=== PATIENT | male | born 1985 ===

== ENCOUNTER 2021-01-27 20:30 | Emergency (ER) | payer BC ==
[~2021-01-27] VITALS: Ht 180.3 cm; Wt 83.9 kg
[~2021-01-27 20:30] MED LIST: HYDACE5 PO; OXYACE5T PO; SULTRIDS PO
== END 2021-01-27 23:42 | disposition home or self-care (01) ==
LOC: ER 20:30
DX: S42.022A Displaced fracture of shaft of left clavicle, initial encounter for closed fracture (principal); R06.02 Shortness of breath; W19.XXXA Unspecified fall, initial encounter
CPT/HCPCS: 71045; 73000; 99283-25; A9270

== ENCOUNTER 2021-10-22 19:27 | Emergency (ER) | payer BC ==
[~2021-10-22] VITALS: Ht 180.3 cm; Wt 88.5 kg
== END 2021-10-22 21:46 | disposition home or self-care (01) ==
LOC: ER 19:27
DX: S06.9X9A Unspecified intracranial injury with loss of consciousness of unspecified duration, initial encounter (principal); W21.07XA Struck by softball, initial encounter
CPT/HCPCS: 70450; 99284-25

== ENCOUNTER 2024-04-05 05:22 | Emergency (ER) | payer BC ==
[~2024-04-05] VITALS: Ht 180.3 cm; Wt 79.4 kg
[2024-04-05 05:35] VITALS: BP 160/98
[2024-04-05] MEDS ORDERED: PredniSONE 20 MG Tab PO ONE (07:45)
[2024-04-05] MEDS ORDERED: Amoxicillin 250 MG Cap PO ONE (07:45)
[2024-04-05] MEDS ORDERED: AMOX500 PO (07:58)
== END 2024-04-05 08:05 | disposition home or self-care (01) ==
LOC: ER 05:22
DX: J02.0 Streptococcal pharyngitis (principal)
CPT/HCPCS: 87430; 99283; A9270; J7512